=== PATIENT | male | born 2000 | race Caucasian/White ===

== ENCOUNTER 2019-07-19 15:37 | Emergency (ER) | payer OTHER ==
[~2019-07-19] VITALS: Ht 167.6 cm; Wt 74.4 kg
--- NOTE | 2019-07-19 17:09 | REP ---
CHEST, TWO VIEWS: There is no evidence of acute infiltrate. No pleural effusion is seen. The heart is normal in size. The mediastinal silhouette is unremarkable. The visualized osseous structures are intact. IMPRESSION: No acute pulmonary disease. Electronically Signed by John Saunders MD 07/22/2019 04:28 P
[2019-07-19] MEDS ORDERED: ACETAMINOPHEN 325 MG TAB PO ONE (18:15)
[2019-07-19 18:16] VITALS: BP 135/78
== END 2019-07-19 18:26 | disposition home or self-care (01) ==
LOC: M ED 15:37
DX: S20.211A Contusion of right front wall of thorax, initial encounter (principal); V49.49XA Driver injured in collision with other motor vehicles in traffic accident, initial encounter; Y92.410 Unspecified street and highway as the place of occurrence of the external cause

== ENCOUNTER → 2019-12-12 | Outpatient (CLI) | payer OTHER ==
--- NOTE | 2019-12-12 11:51 | REP ---
Clinical: Trauma. Technique: Neutral and frog lateral views of the right hip. Findings: No acute fracture or dislocation. Skeletal structures, joint space, and surrounding soft tissues appear relatively normal. Incidental bone island within the proximal femoral metadiaphysis. Impression: No acute fracture or dislocation. Electronically Signed by Kamran Steve MD 12/12/2019 11:42 A
== END ==
LOC: M LRY 10:59
PROVIDERS: ATTEND Physician Assistant
DX: S79.911A Unspecified injury of right hip, initial encounter (principal); Y99.9 Unspecified external cause status; Y92.9 Unspecified place or not applicable; Y93.9 Activity, unspecified

== ENCOUNTER → 2019-12-12 | Outpatient (CLI) | payer OTHER | LOC: M LRY 11:29 | PROVIDERS: ATTEND Physician Assistant | DX: S79.911A Unspecified injury of right hip, initial encounter (principal); X58.XXXA Exposure to other specified factors, initial encounter; Y92.9 Unspecified place or not applicable ==

== ENCOUNTER → 2021-06-20 | Outpatient (CLI) | payer OTHER ==
--- NOTE | 2021-06-21 09:58 | REP ---
INDICATION: PAIN IN RT HIP injury January 2020 in April 2020, pain COMPARISON: Radiographs 12/12/2019. TECHNIQUE: Coronal T1, STIR through the pelvis, axial, coronal, sagittal T2 fat sat left hip. FINDINGS: The visualized osseous structures demonstrate normal bone marrow signal, except for a 1 cm bone island in the proximal shaft of the right femur. There is no bone marrow edema or occult fracture. There is no evidence of avascular necrosis. There is an anterior labral tear. There is an associated anteriorly located 5 mm paralabral cyst.. There are findings of mild right-sided greater trochanteric tendonobursitis.. There is no joint effusion. The visualized intrapelvic structures are unremarkable. IMPRESSION: Tear anterior labrum. 5 mm anterior paralabral cyst. Mild right sided greater trochanteric tendonobursitis. <Electronically signed by John Saunders > 06/21/21 0907
== END ==
LOC: M RAD 14:46
DX: S73.101A Unspecified sprain of right hip, initial encounter (principal); M24.851 Other specific joint derangements of right hip, not elsewhere classified; M70.61 Trochanteric bursitis, right hip; M25.551 Pain in right hip; X58.XXXA Exposure to other specified factors, initial encounter; Y92.9 Unspecified place or not applicable; Y99.9 Unspecified external cause status

== ENCOUNTER → 2021-08-23 | Outpatient (CLI) | payer OTHER ==
[~2021-08-23] MED LIST: ISOVUE-300 61% 50ML VIAL As Ordered ONE; LIDOCAINE 1% MDV 20ML VIAL As Ordered ONE; TRIAMCINOLONE ACETONIDE SUSP 40 MG/ML VIAL (J3301) As Ordered ONE
--- NOTE | 2021-08-23 18:08 | REP ---
INDICATION: ISCHIOCAPSULAR LIGAMENT SPRAIN. COMPARISON: None TECHNIQUE: The procedure was performed by RICARDA Palacios, under the direct supervision of Dr. Saunders. The benefits and risks of the procedure were explained to the patient, and an informed consent was obtained. Directly prior to the start of the procedure, a formal time-out was completed in the procedure room. The right hip joint space was localized using fluoroscopic guidance. The skin was prepped and draped in a sterile fashion. Approximately 5 mL of 1% Lidocaine 10 mg/ml was used as a local anesthetic. Using fluoroscopic guidance, a #22 gauge spinal needle was inserted and advanced into the right hip joint space. Approximately 2 mL of Isovue 300 was injected to verify placement. Ten mL of a solution containing 9 mL 1% lidocaine 10 mg/ml and 1 mL Kenalog 40 mg/mL was injected into the joint space. The needle was removed and hemostasis was achieved. FINDINGS: The patient tolerated the procedure well and there were no immediate complications. IMPRESSION: 1. Technically successful right hip arthrogram. 0.1 minutes of fluoroscopy time was utilized for this procedure. Some fluoroscopic images are performed with last image hold technology. These images require no additional radiation. <Electronically signed by Gabriela Parra > 08/23/21 1236 <Electronically signed by John Saunders > 08/23/21 [id number]
== END ==
LOC: M RADPRO 11:04
PROVIDERS: ATTEND Physician Assistant Surgical
DX: M24.851 Other specific joint derangements of right hip, not elsewhere classified (principal)
CPT/HCPCS: 20610; 77002; J3301; Q9967

== ENCOUNTER → 2022-04-08 | Outpatient (REF) | LOC: M PLAIMG 09:46 | PROVIDERS: ATTEND Internal Medicine | DX: M25.551 Pain in right hip (principal) ==